=== PATIENT | male | born 1995 | race Two or more races ===

== ENCOUNTER 2023-10-04 08:25 | Emergency (ER) | payer OTHER ==
[~2023-10-04] VITALS: Ht 154.9 cm; Wt 104.3 kg
[2023-10-04 09:56] LABS: HEMATOCRIT 43.5 % (39.0-48.0); HEMOGLOBIN 14.6 g/dL (13-16.00); MEAN CELL VOLUME 80.5 fL (80.0-100.00); MEAN CORPUSCULAR HEMOGLOBIN 27.1 pg (27.00-32.0); MEAN CORPUSCULAR HGB CONC 33.7 g/dl (32.0-36.0); PLATELET COUNT 216 K/uL (150-450); RED CELL DISTRIBUTION WIDTH 14.2 % (11.5-14.5)
[2023-10-04 10:09] LABS: CALCIUM 9.6 mg/dL (8.5-10.1); CREATININE SERUM 1.06 mg/dL (0.70-1.30); GFR 82.6; POTASSIUM 4.24 mEq/L (3.5-5.1)
== END 2023-10-04 12:36 | disposition home or self-care (01) ==
LOC: ER 08:26
PROVIDERS: Emergency Medicine
DX: R13.19 Other dysphagia (principal)